=== PATIENT | male | born 1990 | race African-American/Black ===

== ENCOUNTER 2021-05-20 08:57 | Inpatient (IN) | payer OTHER ==
[~2021-05-20] VITALS: Ht 182.9 cm; Wt 119.7 kg
[2021-05-20] MEDS ORDERED: NALOXONE HCL 0.4 MG/ML AMPUL IV ONE (09:30)
--- NOTE | 2021-05-20 09:30 | NUR ---
BIBRA81 FROM [facility] UNRESPONSIVE. PER RA81, PT OVERDOSE ON DRUGS, LIKELY FENTANYL. NARCAN 6 MG TOTAL GIVEN. PT UNRESPONSIVE TO VOICE OR COMMANDS, FLINCHES TO TOUCH. ON MONITOR. PULSE IS 51. BP 147/80. ALL OTHER VITALS ARE STABLE.
--- NOTE | 2021-05-20 09:40 | NUR ---
URINE COLLECTED AND SENT TO THE LAB
--- NOTE | 2021-05-20 09:42 | NUR ---
PHLEBATOMIST AT THE BEDSIDE
[2021-05-20 09:43] LABS: BASOPHILS % (AUTO) 0.4 % (0.0-2.0); EOSINOPHILS % (AUTO) 1.4 % (0.0-6.0); HEMATOCRIT 38 % (39-51); LYMPHOCYTES # (AUTO) 1.8 K/uL (0.8-4.8); LYMPHOCYTES % (AUTO) 18.9 % (20.0-44.0); MEAN CORPUSCULAR HGB CONC 32 g/dl (31.0-36.0); MEAN CORPUSCULAR VOLUME 80 fL (80-96); MONOCYTES % (AUTO) 10.1 % (2.0-12.0); NEUTROPHILS # (AUTO) 6.6 K/uL (1.8-8.9); NEUTROPHILS % (AUTO) 69.2 % (43.0-81.0); PLATELET COUNT (AUTO) 327 K/uL (150-450); RED BLOOD CELL COUNT(AUTO) 4.71 MIL/uL (4.5-6.0); WHITE BLOOD COUNT (AUTO) 9.6 K/uL (4.3-11.0)
--- NOTE | 2021-05-20 09:44 | NUR ---
THE PATIENT IS TAKEN TO CT
[2021-05-20 09:50] LABS: CALCIUM, SERUM 8.8 mg/dL (8.5-10.1); CARBON DIOXIDE 31 mmol/L (21-32); CHLORIDE 105 mmol/L (98-107); CREATININE 0.8 mg/dL (0.6-1.3); GLUCOSE 65 mg/dL (74-106); POTASSIUM 3.2 mmol/L (3.5-5.1); SODIUM SERUM 143 mmol/L (136-145); UREA NITROGEN, BLOOD 11 mg/dL (7-18)
--- NOTE | 2021-05-20 09:53 | NUR ---
THE PATIENT IS BACK FROM CT
[2021-05-20 09:56] LABS: ALANINE AMINOTRANSFERASE 36 U/L (12-78); ALBUMIN 3.3 g/dL (3.4-5.0); ALCOHOL, BLOOD < 3 mg/dL (0-0); ALKALINE PHOSPHATASE 105 U/L (46-116); ASPARTATE AMINOTRANSFERASE 29 U/L (15-37); BILIRUBIN,DIRECT 0.1 mg/dL (0.0-0.2); BILIRUBIN,TOTAL 0.3 mg/dL (0.2-1.0); TOTAL PROTEIN, SERUM 7.8 g/dL (6.4-8.2)
[2021-05-20] MEDS ORDERED: VANCOMYCIN 1 GM in IV D5W 250 ML IV ONE (10:00)
[2021-05-20] MEDS ORDERED: CEFEPIME 1 GM in IV D5W 50 ML IV ONE (10:00)
[2021-05-20] MEDS ORDERED: NALOXONE PREFILLED SYRINGE 2 MG/2 ML SYRINGE ONE (10:17)
--- NOTE | 2021-05-20 10:22 | NUR ---
NARCAN 2 MG IV PUSH GIVEN PER ORDER. THE PATIENT STILL RESPONSIVE TO TACTILE STIMULI. DR LOVELL AWARE. VSS.
--- NOTE | 2021-05-20 11:10 | NUR ---
THE PATIENT SLEEPING. RESPONSIVE TO VERBAL STIMULI. IN ROOM AIR. RESPIRATION REGULAR AND UNLABORED. WILL CONTINUE TO MONITOR THE PATIENT.
[2021-05-20] MEDS ORDERED: IV PREMIX D5 NS + KCL 1,000 ML IV ONE (11:30)
[2021-05-20] MEDS ORDERED: MAGNESIUM HYDROXIDE 30 ML UDC PO PRN (12:00)
[2021-05-20] MEDS ORDERED: ONDANSETRON HCL/PF 4 MG/2 ML VIAL IVP PRN (12:00)
[2021-05-20] MEDS ORDERED: Z GUARD REMEDY 2 OZ OINT TP PRN (12:00)
[2021-05-20] MEDS ORDERED: ACETAMINOPHEN 325 MG TABLET PO PRN (12:00)
[2021-05-20] MEDS ORDERED: MAG HYDROX/AL HYDROX/SIMETH 30 ML UDC PO PRN (12:00)
--- NOTE | 2021-05-20 12:23 | NUR ---
COVID SWAB DONE AND SENT TO THE LAB
--- NOTE | 2021-05-20 13:33 | NUR ---
ROOM 107
--- NOTE | 2021-05-20 13:38 | NUR ---
REPORT GIVEN TO NURSE HDZ
--- NOTE | 2021-05-20 13:52 | NUR ---
THE PATIENT IS TRANSFERED TO [facility] IN STABLE CONDITION AND PER ACLS POLICY.
--- NOTE | 2021-05-20 14:08 | NUR ---
RN NOTE PATIENT RECEIVED ON THE UNIT, REPORT GIVEN TO CHARGE NURSE LISA. PATIENT ON ROOM AIR WITH NO SIGNS OF LABORED BREATHING AT THIS TIME, SATURATING 100%. L AC 18G IN PLACE RUNNING D5NS WITH 20 OF KCL AT 200CC/HR. BED LOCKED AND IN LOWEST POSITION, CALL LIGHT WITHIN REACH, 2 SIDE RAILS UP, ALL SAFETY MEASURES IMPLEMENTED. WILL CONTINUE TO MONITOR.
[2021-05-20] MEDS: ENOXAPARIN SODIUM 40 MG/0.4 ML DISP.SYRIN SQ SCH (14:28)
[2021-05-20 14:39] VITALS: BP 169/75
[2021-05-20] MEDS: CEFTRIAXONE 2 G in IV D5W 100 ML IV SCH (15:19)
[2021-05-20 16:00] VITALS: BP 169/75
[2021-05-20] MEDS: VANCOMYCIN 1.25 GM in IV D5W 250 ML IV SCH (17:25)
--- NOTE | 2021-05-20 18:46 | NUR ---
RN CLOSING NOTE PATIENT IN BED, ASLEEP, LETHARGIC. PATIENT ON ROOM AIR WITH NO SIGNS OF LABORED BREATHING AT THIS TIME. LEFT AC 18G IN PLACE, PATENT WITH NO SIGNS OF INFILTRATION AND RUNNING D5NS WITH 20 KCL AT 200CC/HR. NO SIGNS OF DISTRESS NOTED AT THIS TIME. BED LOCKED AND IN LOWEST POSITION, 3 SIDE RAILS UP, CALL LIGHT WITHIN REACH. WILL ENDORSE TO ENVIRONMENTAL ANALYST NURSE.
[2021-05-20 20:00] VITALS: BP 143/91
--- NOTE | 2021-05-20 20:30 | NUR ---
RN NOTE RECEIVED PT SLEEPING, RESPONDS TO STIMULI. ABLE TO FOLLOW SOME COMMANDS. NO SIGNS OF DISTRESS NOTED. PT IV PULLED OUT. UNABLE TO GET NEW LINE. CHARGE NURSE MADE AWARE. WILL CONTINUE TO MONITOR. ALL SAFETY MEASURES IN PLACE.
--- NOTE | 2021-05-20 22:00 | NUR ---
RN NOTE ABLE TO INSERT PERIPHERAL IV LINE ON RHAND 20G, CONTINUE D5NS WITH KCL. WILL JUST FINISH REMAINING IN BAG THEN WILL START NS ORDERED. WILL CONTINUE TO MONITOR.
--- NOTE | 2021-05-21 01:15 | NUR ---
RN NOTE PT MORE AWAKE NOW. REORIENTED TO TIME PLACE AND SITUATION. PT EATING. WILL CONTINUE TO MONITOR,
[2021-05-21] MEDS: VANCOMYCIN 1.25 GM in IV D5W 250 ML IV SCH ×3 (02:43→18:22)
[2021-05-21] MEDS: IV NS 0.9% 1,000 ML IV PRN (03:34)
[2021-05-21 04:00] VITALS: BP 126/81
[2021-05-21 06:47] LABS: BASOPHILS % (AUTO) 0.3 % (0.0-2.0); EOSINOPHILS % (AUTO) 3.7 % (0.0-6.0); HEMATOCRIT 37 % (39-51); MEAN CORPUSCULAR HGB CONC 32 g/dl (31.0-36.0); MEAN CORPUSCULAR VOLUME 81 fL (80-96); MONOCYTES # (AUTO) 0.6 K/uL (0.1-1.30); MONOCYTES % (AUTO) 6.5 % (2.0-12.0); NEUTROPHILS # (AUTO) 5.6 K/uL (1.8-8.9); NEUTROPHILS % (AUTO) 65.5 % (43.0-81.0); PLATELET COUNT (AUTO) 330 K/uL (150-450); RED BLOOD CELL COUNT(AUTO) 4.63 MIL/uL (4.5-6.0); WHITE BLOOD COUNT (AUTO) 8.5 K/uL (4.3-11.0)
--- NOTE | 2021-05-21 07:08 | NUR ---
RN NOTE PT STILL SOMEWHAT LETHARGIC, AROUSABLE TO TOUCH TACTILE. NO SIGNS OF DISTRESS. ON IV FLUIDS OF NS AT 75ML/HR. INFUSING WELL. ON FREQUENT VISUAL CHECKS AND REORIENTATION. ALL SAFETY MEASURES MAINTAINED, WILL ENDORSE TO NEXT SHIFT NURSE FOR LUCERO.
[2021-05-21 07:15] LABS: ALBUMIN 2.6 g/dL (3.4-5.0); BILIRUBIN,TOTAL 0.3 mg/dL (0.2-1.0); CREATININE 0.7 mg/dL (0.6-1.3); PHOSPHORUS 3.7 mg/dL (2.5-4.9); POTASSIUM 3.3 mmol/L (3.5-5.1); TOTAL PROTEIN, SERUM 6.7 g/dL (6.4-8.2)
--- NOTE | 2021-05-21 07:20 | NUR ---
RN OPENING NOTE PATIENT IN BED, ASLEEP, LETHARGIC/ DROWSY. PATIENT ON ROOM AIR WITH NO SIGNS OF LABORED BREATHING AT THIS TIME. NO COMPLAIN OF PAIN OR DISCOMFORT. PATIENT WITH RIGHT HAND G 20 IV ACCESS WITH IVF OF NS RUNNING AT 75 ML/HR. SAFETY MEASURES ENSURED WITH BED LOCKED AND IN LOWEST POSITION, SIDE RAILS UP AND CALL LIGHT WITHIN REACH. WILL CONTINUE TO MONITOR PATIENT.
[2021-05-21] MEDS: ENOXAPARIN SODIUM 40 MG/0.4 ML DISP.SYRIN SQ SCH (09:10)
[2021-05-21] MEDS ORDERED: POTASSIUM CHLORIDE 20 MEQ TAB.PRT.SR PO SCH (09:30)
--- NOTE | 2021-05-21 09:37 | NUR ---
WOUND CARE CONSULT: PT MOVING ABOUT IN BED AND NOTED TO HAVE RT LOWER LEG EDEMA, PRESENT ON ADMISSION. DEFER TO MD FOR EDEMA. WILL SEE PRN.
--- NOTE | 2021-05-21 12:00 | NUR ---
RN NOTES RECEIVED REPORT FROM OSCAR FOR LUCERO
--- NOTE | 2021-05-21 12:08 | NUR ---
RN NOTES SPOKE WITH LIGIA FINISHING AND SHIPPING SUPERVISOR, PER HER, PT CLAIMS HE HAS A DIFFERENT NAME, STATED THAT HE IS NOT SG MARIE, ALTHOUGH STATED CORRECT DATE OF ON HIS ID. 1990, PATIENT MUMBLES AND SAID HIS NAME IS "LUCAS". PER LIGIA SHE WILL SPEAK WITH HER ECHO TECH AND WILL KAKTOVIK BACK TO US.
[2021-05-21] MEDS: CEFTRIAXONE 2 G in IV D5W 100 ML IV SCH (14:57)
[2021-05-21 16:00] VITALS: BP 150/90
--- NOTE | 2021-05-21 16:50 | NUR ---
SS Note: SS consult completed by AMY, Sofie Fajardo. SS consult for possible homelessness was attempted at bedside. Pt. refused to participate in interview. SW will follow up at a later time.
--- NOTE | 2021-05-21 19:00 | NUR ---
received patient in bed would not open eyes when name spoken but turned over in the bed away from me. resp even and unlabored iv infusing
--- NOTE | 2021-05-21 19:05 | NUR ---
RN CLOSING NOTES PATIENT IN BED, ALERT AND ORIENTED X 1-2, ON ROOM AIR WITH NO SIGNS OF LABORED BREATHING OR DISTRESSED AT THIS TIME. RIGHT HAND 20G IV IN PLACE, NS AT 75 ML/HR. PATENT WITH NO SIGNS OF INFILTRATION, ONGOING VANCOMYCIN, BED LOCKED AND IN LOWEST POSITION, ALL NEEDS MET CALL LIGHT WITHIN REACH. WILL ENDORSE TO GEAR LAPPER NURSE.
[2021-05-21 20:00] VITALS: BP 146/74
[2021-05-22] MEDS: IV NS 0.9% 1,000 ML IV PRN ×2 (00:03→19:11)
[2021-05-22] MEDS: VANCOMYCIN 1.25 GM in IV D5W 250 ML IV SCH ×3 (01:15→17:03)
[2021-05-22 04:00] VITALS: BP 131/59
--- NOTE | 2021-05-22 06:23 | NUR ---
CLOSING NOTES: SPEAKS OF GOING HOME TODAY NEEDS TO SEE THE BOX ANNEALER BY 9am OR HE WILL GO ama RASH ON HIS BODY STILL PRESENT STATES IS HAPPENED AFTER THE vACCINATION DIDN'T GET THE 2ND VACCINATION HAS SEEN NO SOB ON ROOM AIR Addendum: 05/22/21 at 0625 by KYLE KNOWLES RN CHARTED ON THE WRONG PATIENT
--- NOTE | 2021-05-22 06:26 | NUR ---
CLOSING NOTES: ALERT BUT LETHARGIC WILL FOLLOW SIMPLE DIRECTIONS. MAKES NO ATTEPT TO GET OOB USES THE URINAL WILL SPEAK HIS WORDS ARE CLEAR POOR EYE CONTACT. NOTED HE SHAKES HIS HEAD AT TIMES AND HIS ARMS AND LEGS WILL SPASMS OFF AND ON
[2021-05-22 06:48] LABS: CALCIUM, SERUM 8.4 mg/dL (8.5-10.1); CREATININE 0.6 mg/dL (0.6-1.3); POTASSIUM 3.4 mmol/L (3.5-5.1)
--- NOTE | 2021-05-22 07:32 | NUR ---
NURSE OPENING NOTE. RECEIVE REPORT FROM OUT GOING NURSE. PATIENT ADMITTING DX: DRUG OVERDOSE, RIGHT LEG CELLULITIS, TONIC ENCEPHALOPATHY. ON ROOM AIR. ON BED REST. RECEIVING FLUID HYDRATION VIA NS @75ML/HR. WILL FOLLOW UP WITH AM LABS. ALL SAFETY MEASURE IN PLACE. BED ON THE LOWEST POSITION WITH HOB ELEVATED. 3 SIDE RAIL UP. CALL LIGHT WITHIN REACH. WILL CONTINUE TO MONITOR.
[2021-05-22 08:00] VITALS: BP 116/71
[2021-05-22] MEDS: ENOXAPARIN SODIUM 40 MG/0.4 ML DISP.SYRIN SQ SCH (08:41)
[2021-05-22] MEDS ORDERED: POTASSIUM CHLORIDE 20 MEQ TAB.PRT.SR PO ONE (09:00)
--- NOTE | 2021-05-22 14:00 | NUR ---
MS RN NOTES RECEIVED PATIENT FROM KATYA ENDORSED BY NURSE BLUE. VITAL SIGNS TAKEN. ON ROOM AIR TOLERATING WELL. NO SOB NOTED. NOT IN DISTRESS. WITH NO COMPLAINTS OF PAIN AT THIS TIME. WITH IV ACCESS AT RIGHT HAND G20 PATENT AND INTACT WITH IVF NS AT 75ML/HR. SAFETY MEASURES IN PLACE. CALL LIGHT WITHIN REACH. BED ON LOWEST AND LOCKED POSITION, SIDE RAILS UP X2. WILL CONTINUE TO MONITOR.
[2021-05-22] MEDS: CEFTRIAXONE 2 G in IV D5W 100 ML IV SCH (14:55)
[2021-05-22 15:53] VITALS: BP 129/72
[2021-05-22 16:00] VITALS: BP 129/72
--- NOTE | 2021-05-22 18:36 | NUR ---
MS RN CLOSING NOTES PATIENT RESTING ON BED AND A/O X2. ON ROOM AIR TOLERATING WELL. NO SOB NOTED. NOT IN DISTRESS. WITH NO COMPLAINTS OF PAIN AT THIS TIME. WITH IV ACCESS AT RIGHT HAND G20 PATENT AND INTACT WITH IVF NS AT 75ML/HR. SAFETY MEASURES IN PLACE. CALL LIGHT WITHIN REACH. BED ON LOWEST AND LOCKED POSITION, SIDE RAILS UP X2. WILL ENDORSE TO NEXT SHIFT FOR LUCERO.
--- NOTE | 2021-05-22 19:45 | NUR ---
MS RN OPENING NOTES PATIENT RESTING IN BED PATIENT; A/OX2. FORGETFUL AND CONFUSED AT TIMES. RESPIRATIONS ARE EVEN AND NONLABORED; TOLERATING ROOM AIR TOLERATING WELL WITH NO SOB. NO SIGNS OF DISTRESS NOTED. IV R HAND #20G NS @ 75ML/HR; PATENT AND INTACT. SAFETY MEASURES IN PLACE: CALL LIGHT WITHIN REACH, SIDE RAILS UP X 2, BED LOCKED ON LOWEST AND LOCKED POSITION, SIDE RAILS UP X2. PT IN STABLE CONDITION; WILL CONTINUE PLAN OF CARE.
[2021-05-22 20:00] VITALS: BP 124/68
--- NOTE | 2021-05-22 21:19 | NUR ---
MS RN NOTE - PAIN PT C/O RLE PAIN. ADMINISTERED TYLENOL ORDERED. WILL REASSESS FOR PAIN. RLE ELEVATED WITH PILLOW
--- NOTE | 2021-05-22 23:15 | NUR ---
MS RN NOTES RECEIVED REPORT FROM NIMCO GUNTER FOR LUCERO.PATIENT ON BED SLEEPING WITH RIGHT LEGY ELEVATED ON PILLOWS.IVF NS AT 75ML/HR RATE INFUSING WELL ON RIGHT AC SALINE LOCK VIA IV PUMP.WILL CONTINUE TO MONITOR STATUS.
--- NOTE | 2021-05-23 02:00 | NUR ---
MS RN NOTES DUE VANCOMYCIN IV HUNG
[2021-05-23] MEDS: VANCOMYCIN 1.25 GM in IV D5W 250 ML IV SCH ×3 (02:08→18:04)
--- NOTE | 2021-05-23 06:26 | NUR ---
MS RN NOTES SLEPT WELL AT NIGHT,IVF INFUSING,IV ABX TOLERATED WELL,NO ADVERSE SIDE EFFECTS NOTED.AMBULATE WITH WALKER,NO FALL,NO INJURY.IN NO ACUTE DISTRESS.DISCHARGE PLANNING WHEN MEDICALLY CLEARED.
--- NOTE | 2021-05-23 07:26 | NUR ---
MS RN OPENING NOTES RECEIVED PATIENT RESTING BED, ALERT AND ORIENTED X 2, CONFUSED. NO SOB. BREATHING IS EVEN AND UNLABORED. PT TOLERATING WELL ON RA. IV ACCESS RAC#20 PATENT AND INTACT WITH 0.9% NS RUNNING @75MMLS/HR. SAFETY MEASURES IN PLACE WITH BED LOCKED IN LOW POSITION AND SIDE RAILS UP X 2. WILL CONTINUE TO MONITOR PATIENT THROUGHOUT SHIFT.
[2021-05-23 07:35] LABS: CALCIUM, SERUM 8.6 mg/dL (8.5-10.1); CREATININE 0.6 mg/dL (0.6-1.3); POTASSIUM 3.6 mmol/L (3.5-5.1)
[2021-05-23 08:00] VITALS: BP 139/77
[2021-05-23] MEDS: ENOXAPARIN SODIUM 40 MG/0.4 ML DISP.SYRIN SQ SCH (08:05)
[2021-05-23] MEDS: CEFTRIAXONE 2 G in IV D5W 100 ML IV SCH (14:22)
[2021-05-23 16:00] VITALS: BP 120/63
[2021-05-23] MEDS: IV NS 0.9% 1,000 ML IV PRN (18:10)
--- NOTE | 2021-05-23 18:45 | NUR ---
MS RN CLOSING NOTES PATIENT RESTING BED, ALERT AND ORIENTED X 3. NO SOB. BREATHING IS EVEN AND UNLABORED. PT TOLERATING WELL ON RA. IV ACCESS LAC#20 PATENT AND INTACT WITH 0.9% NS RUNNING @75MMLS/HR. SAFETY MEASURES IN PLACE WITH BED LOCKED IN LOW POSITION AND SIDE RAILS UP X 2. CALL LIGHT IS WITHIN REACH. ALL NEEDS MET THROUGHOUT SHIFT. WILL ENDORSE CONTINUITY OF CARE TO ONCOMING SHIFT.
--- NOTE | 2021-05-23 19:31 | NUR ---
MS RN OPENING NOTES RECEIVED PT IN BED, WATCHING TV. AOx3. ABLE TO MAKE NEEDS KNOWN. ON RA AND TOLERATING WELL. NO SOB NOTED. NO S/SX OF RESPIRATORY DISTRESS NOTED. IV ACCESS IN LAC#20 RUNNING NS @75 ML/HR. SAFETY PRECAUTIONS IN PLACE: BED IN LOWEST, LOCKED POSITION, SIDERAILS UPx2, AND BRAKES ON. TABLE AND CALL LIGHT WITHIN REACH. WILL CONTINUE TO MONITOR.
[2021-05-23 20:02] VITALS: BP_SYST 128; BP_SYST 134; BP_DIAS 73; BP_DIAS 76
[2021-05-24] MEDS ORDERED: VANCOMYCIN 1 GM VIAL ONE ×2 (03:33→03:35)
[2021-05-24] MEDS: VANCOMYCIN 1.5 GM in IV D5W 500 ML IV SCH ×2 (03:46→09:56)
[2021-05-24 06:30] LABS: CALCIUM, SERUM 8.6 mg/dL (8.5-10.1); CREATININE 0.6 mg/dL (0.6-1.3); POTASSIUM 3.6 mmol/L (3.5-5.1)
--- NOTE | 2021-05-24 06:55 | NUR ---
MS RN CLOSING NOTES PT IN BED, ASLEEP, AWAKENS TO VERBAL STIMULI. AOx3. ABLE TO MAKE NEEDS KNOWN. ON RA AND TOLERATING WELL. NO SOB NOTED. NO S/SX OF RESPIRATORY DISTRESS NOTED. IV ACCESS IN LAC#20 RUNNING NS @75 ML/HR. SAFETY PRECAUTIONS IN PLACE: BED IN LOWEST, LOCKED POSITION, SIDERAILS UPx2, AND BRAKES ON. TABLE AND CALL LIGHT WITHIN REACH. WILL ENDORSE TO ONCOMING SHIFT. Addendum: 05/24/21 at 0657 by OMKAR CARDONA RN ALL NEEDS MET. PT KEPT CLEAN AND DRY.
--- NOTE | 2021-05-24 07:16 | NUR ---
RN NOTES RECEIVED PATIENT RESTING IN BED, ON ROOM AIR, NO SOB NOTED, NO SIGNS OF ACUTE DISTRESS. RECEIVED PATIENT WITHOUT IV ACCESS, PER OUTGOING SHIFT, PATIENT PULLED OUT SL AND WASN'T ABLE TO REINSERT. SAFETY MEASURES IN PLACE. BED ON ITS LOWEST, LOCKED POSITION, SIDE RAILS X2 UP, CALL LIGHT PLACED WITHIN EASY REACH. WILL CONTINUE TO MONITOR PATIENT.
[2021-05-24 08:00] VITALS: BP 127/75
[2021-05-24] MEDS: ENOXAPARIN SODIUM 40 MG/0.4 ML DISP.SYRIN SQ SCH (08:57)
--- NOTE | 2021-05-24 09:36 | NUR ---
RN NOTES NEW IV ACCESS REINSERTED ON LEFT HAND WITH 22G, X1 ATTEMPT, WITH GOOD BLOOD RETURN, COVERED AND SECURED WITH TRANSPARENT DRESSING. IVF OF NS RESTARTED AT 75ML/HOUR.
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
--- NOTE | 2021-05-24 14:33 | NUR ---
RN DISCHARGED NOTES PT DISCHARGED HOME IN STABLE CONDITION. A/O X3-4. ABLE TO MAKE NEEDS KNOWN. V/S TAKEN, STABLE AND RECORDED. ALL BELONGINGS ACCOUNTED FOR AND SIGNED FORM. IV ACCESS ON LEFT HAND REMOVED, NO ACTIVE BLEEDING NOTED, DRY PRESSURE DRESSING APPLIED TO SITE. NAME ARMBAND REMOVED. HEALTH TEACHINGS GIVEN TO PT AND VERBALIZED UNDERSTANDING. PRESCRIPTION FOR CLINDAMYCIN ATB AND EXIT FOLDER HANDED TO PATIENT. PT LEFT UNIT VIA WC AT 1425 ACCOMPANIED BY ME TO THE LOBBY AND PROVIDED PATIENT WITH FWW. PT STATED THAT HE WILL TAKE UBER TO GO TO HIS FRIEND'S HOUSE, NAME AND ADDRESS OF FRIEND NOT GIVEN. CHARGE NURSE AWARE OF DISCHARGE.
== END 2021-05-24 14:30 | disposition home or self-care (01) | DRG 812 ==
LOC: EDBD 09:34 → ER 09:34 → TELE1 13:33 → MEDSG1 13:43 → MED 05-22 13:51
PROVIDERS: ADMIT Internal Medicine; ATTEND Internal Medicine
DX: T40.2X1A Poisoning by other opioids, accidental (unintentional), initial encounter (principal); G92.8 Other toxic encephalopathy; L03.115 Cellulitis of right lower limb; T40.411A Poisoning by fentanyl or fentanyl analogs, accidental (unintentional), initial encounter; Y92.89 Other specified places as the place of occurrence of the external cause; E87.6 Hypokalemia; E66.9 Obesity, unspecified; Z20.822 Contact with and (suspected) exposure to COVID-19; F19.10 Other psychoactive substance abuse, uncomplicated; F12.129 Cannabis abuse with intoxication, unspecified; Z68.35 Body mass index [BMI] 35.0-35.9, adult
CPT/HCPCS: 36415; 70450-TC; 80048-TC; 80053-TC; 80061-TC; 80076-TC; 80202-TC; 83605-TC; 83735-TC; 84100-TC; 85025-TC; 87040-TC; 87081-TC; 93971-TC; 97116-TC; 97530-TC; C9803; G0378; G0480; J0692; J0696; J1650; J2310; J3370; J3490; J7030; J7050; J7060